=== PATIENT | female | born 1940 | race Caucasian/White ===

== ENCOUNTER 2024-09-08 20:20 | Emergency (ER) | payer OTHER, SELFPAY ==
[2024-09-08 20:46] VITALS: BP 143/75
--- NOTE | 2024-09-08 22:28 | ED.GENMED ---
History of Present Illness
General
Chief Complaint: Fall
Source: patient and spouse
Exam Limitations: none
Time Seen by Provider: 09/08/24 22:17
Nursing documentation reviewed up to this point in time: agreed with
History of Present Illness
History of Present Illness:
83-year-old female past medical history of COPD previous lung cancer presenting to the emergency department today with concerns of a trip and fall hitting her head prior to arrival did not lose consciousness otherwise feels well at this point. Has
a small cut to her left lower leg.
Review of Systems
Review of Systems
Allergies reviewed?: Yes
All Other Systems: ROS reviewed and negative except as documented in HPI and ROS
Phy Exam
Physical Exam
Physical Exam:
GENERAL: Alert , in no apparent distress
EYE: pupils equal and reactive
NECK: Supple, no significant adenopathy.
ENT: o/p clr, mmm.
CARDIAC: Regular rate and rhythm .
LUNGS: Clear breath sounds bilaterally, no acute respiratory distress, no wheezes/rales/rhonchi
ABDOMEN: Soft, without focal tenderness, no r/g, no cvat
NEUROLOGICAL: Alert and oriented, no focal neuro deficits
SKIN: Skin tear to the left lateral lower leg roughly 3 cm in total length no foreign body seen. Warm and dry, skin intact.
MUSCULOSKELETAL: No edema, well perfused.
PSYCH: Normal and appropriate interaction.
Course
Orders/Labs/Results
Orders:
Orders
09/08/24 20:50
CT Cervical Spine W/o Iv Contr Urgent
Comment:
Reason For Exam: fall w/ headstrike
CT Head W/o Iv Contrast Urgent
Comment:
Reason For Exam: fall w/ headstrike
Vital Signs
Initial and Last Documented VS:
Initial Vital Signs
Temp Pulse Resp BP Pulse Ox
98.2 F 78 16 143/75 96
09/08/24 20:46 09/08/24 20:46 09/08/24 20:46 09/08/24 20:46 09/08/24 20:46
Last Documented Vital Signs
Temp Pulse Resp BP Pulse Ox
98.2 F 74 27 139/69 99
09/08/24 20:46 09/08/24 22:38 09/08/24 22:38 09/08/24 22:38 09/08/24 22:38
Procedures
Laceration Closure
Left Lower Lateral Leg:
Status of Wound: clean
Size of Wound in cm: 3
Description of Wound Edges: sharp
Preparation: cleaned with saline
Revision/Debridement: routine- no revision
Wound exploration: explored to base- no FB
Type of Closure: Dermabond-skin glue and other (Steri-Strips and Dermabond)
MDM/Problems Addressed
MDM/Problems Addressed:
83-year-old female presenting to the emergency department after trip and fall prior to arrival. Sustained a laceration to her left lower leg and also hit her head. Did not lose consciousness not on blood thinners. CT scan of the head and neck
without emergent findings. Patient appears stable for discharge return precautions given.
*Critical Care Note
Total Time (30-74mins, 75-104mins- exclusive of procedures): Not Applicable
ED Attending Note
-
Portions of this chart may have been created with voice recognition software.� Occasional wrong word or��sound alike� substitutions may have occurred due to the inherent limitations of voice recognition software.
Discharge Plan
Departure
Patient Disposition: Home (Routine Discharge)
Date of Disposition: 09/08/24
Time of Disposition: 22:28
Patient with high blood pressure during this ER visit?: No
Condition: Good
Covid-19: Not Applicable
Discharge Problem:
Fall, Hematoma of left parietal scalp, Noninfected skin tear of left leg
Instructions: Preventing falls in adults
Referrals:
Danny Granados MD [Family Provider] -
Activity Restrictions/Additional Instructions:
You came to the emergency department today with concerns after a fall. Here you had a reassuring head CT and neck CT. Please keep the laceration clean and covered. Return for any worsening, new or concerning symptoms.
Interventions
Interventions:
*Risk Screen - Suicide Last Done: 09/08/24 20:48
*General Assessment Last Done: 09/08/24 22:19
*Neglect/Abuse Screening Last Done: 09/08/24 20:48
*ED- Fall Risk Assessment Last Done: 09/08/24 22:19
*ED COVID-19 Vaccine History Last Done: 09/08/24 20:48
*Nursing Disposition Last Done: 09/08/24 22:36
ED-Musculoskeletal Assessment Last Done: 09/08/24 22:19
ED- Neurological Assessment Last Done: 09/08/24 22:19
ED-Skin Assessment Last Done: 09/08/24 22:19
Discharge Date and Time
Discharge Date/Time: 09/08/24 22:39
Print Language: POLISH
[2024-09-08 22:38] VITALS: BP 139/69
== END 2024-09-08 22:39 | disposition home or self-care (01) ==
LOC: EMR 20:20
PROVIDERS: EMERGENCY PHYSICIAN Emergency Medicine; FAMILY PHYSICIAN Internal Medicine
DX: S81.812A Laceration without foreign body, left lower leg, initial encounter (principal); S00.03XA Contusion of scalp, initial encounter; W01.0XXA Fall on same level from slipping, tripping and stumbling without subsequent striking against object, initial encounter; J44.9 Chronic obstructive pulmonary disease, unspecified; Z85.118 Personal history of other malignant neoplasm of bronchus and lung
CPT/HCPCS: 12002; 99284; 70450; 72125

== ENCOUNTER 2024-12-28 09:12 | Emergency (ER) | payer MEDICARE, BC, SELFPAY ==
[2024-12-28] VITALS (13 sets, daily range): BP systolic 151–188; BP diastolic 80–97; BMI 20.4
--- NOTE | 2024-12-28 09:32 | ED.GENMED ---
History of Present Illness
<Jennifer Chandler DO, Resident - Last Filed: 12/28/24 15:58>
General
Chief Complaint: Fall
Time Seen by Provider: 12/28/24 09:13
History of Present Illness
History of Present Illness:
Patient is an 84-year-old female past medical history COPD, lung cancer s/p surgery presenting with a mechanical fall. Patient states she was at home using her walker trying to go to the bathroom, turned to turn on the light, while her walker was
unlocked and fell backwards on the floor. Patient states the walker then fell on top of her. Patient denies hitting her head patient denies loss of consciousness. Patient states that she has pain 9 out of 10 on her right ribs right shoulder right
neck. Patient states that it hurts to take deep breaths. Patient is tender to palpation on the right side. Patient has abrasions on right arm and chest. Patient states that she is having neck pain and that she is afraid to lift her head to use a
pillow.
Review of Systems
<Jennifer Chandler DO, Resident - Last Filed: 12/28/24 15:58>
Review of Systems
Allergies reviewed?: Yes
All Other Systems: ROS reviewed and negative except as documented in HPI and ROS
Constitutional: Reports no symptoms
EENT: Reports no symptoms
Respiratory: Reports trouble breathing and other (Pain on deep inspiration on right side.)
Cardiac: Reports no symptoms
ABD/GI: Reports no symptoms
: Reports no symptoms
Musculoskeletal: Reports no symptoms
Skin: Reports no symptoms
Neurological: Reports no symptoms
Endocrine: Reports no symptoms
Hematologic/Lymphatic: Reports no symptoms
Psychiatric: Reports no symptoms
Phy Exam
<Jennifer Chandler DO, Resident - Last Filed: 12/28/24 15:58>
General Physical Exam
General Presentation: moderate distress
General age: appears stated age
General Skin: warm and dry
General Habitus: elderly
Cardiovascular Exam
Cardiovascular Exam: regular rate/rhythm
Heart Sounds: normal
Pulmonary Exam
Pulmonary Exam: decreased breath sounds (On the right)
Breath Sounds: Crackles: generalized
Gastrointestinal Exam
Gastrointestinal Exam: tender (Upper right quadrant)
Neurological Exam
Neurological Exam: alert and oriented x3
Musculoskeletal Exam
Musculoskeletal Exam: neck pain and other (Left lateral rib pain)
Skin Exam
Skin Exam: normal color, warm/dry and other (Abrasion noted on right ribs arm elbow)
Psychiatric Exam
Psychiatric Exam: normal mood/affect
Course
<Jennifer Chandler DO, Resident - Last Filed: 12/28/24 15:58>
Orders/Labs/Results
Orders:
Orders
12/28/24 09:46
CXR [CR Chest Portable - 1 View] Urgent
Comment:
Reason For Exam: trauma. evaluate for ptx
Reason Study Needs to be Portable: Unable to Transport
12/28/24 09:52
CT Cervical Spine W/o Iv Contr Urgent
Comment:
Reason For Exam: Fall/head neck right-sided trauma
CT Chest/abd/pel W Iv Cont Urgent
Reason For Exam: Fall/head neck and right sided trauma
CT Head W/o Iv Contrast Urgent
Comment:
Reason For Exam: Fall/head neck and right sided trauma
Cardiac Monitoring- Treatment ONCE
12/28/24 09:53
IV Insert/Care/Rem.- Treatment PRN
0.9% Sodium Chloride 500 ml [Nss] 500 ml IV BOLUS
HYDROmorphone [Dilaudid] 0.25 mg IV NOW STA
12/28/24 10:03
Basic Metabolic Panel Urgent
Complete Blood Count/With Diff Urgent
12/28/24 12:38
HYDROmorphone [Dilaudid] 0.5 mg IV NOW STA
12/28/24 13:25
COVID-19 Antigen Stat
Source: Nasal Swab
12/28/24 14:03
HYDROmorphone [Dilaudid] 0.5 mg .ROUTE .STK-MED ONE
12/28/24 14:04
HYDROmorphone [Dilaudid] 0.5 mg IV NOW STA
Abnormal Lab Results
12/28/24
10:03
MCHC 32.8 L g/dL
(33.0-37.0)
RDW 15.5 H %
(11.5-14.5)
Chloride 113 H mmol/L
(98-107)
BUN 24 H mg/dl
(7-17)
12/28/24 10:03
12/28/24 10:03
Vital Signs
Initial and Last Documented VS:
Initial Vital Signs
Pulse Ox
95
12/28/24 09:17
Last Documented Vital Signs
Temp Pulse Resp BP Pulse Ox
97.6 F 72 13 156/82 96
12/28/24 15:00 12/28/24 15:15 12/28/24 15:15 12/28/24 15:00 12/28/24 15:00
<João Huntley MD - Last Filed: 12/28/24 13:24>
Orders/Labs/Results
Orders:
Orders
12/28/24 09:46
CXR [CR Chest Portable - 1 View] Urgent
Comment:
Reason For Exam: trauma. evaluate for ptx
Reason Study Needs to be Portable: Unable to Transport
12/28/24 09:[address] Cervical Spine W/o Iv Contr Urgent
Comment:
Reason For Exam: Fall/head neck right-sided trauma
CT Chest/abd/pel W Iv Cont Urgent
Reason For Exam: Fall/head neck and right sided trauma
CT Head W/o Iv Contrast Urgent
Comment:
Reason For Exam: Fall/head neck and right sided trauma
Cardiac Monitoring- Treatment ONCE
12/28/24 09:53
IV Insert/Care/Rem.- Treatment PRN
0.9% Sodium Chloride 500 ml [Nss] 500 ml IV BOLUS
HYDROmorphone [Dilaudid] 0.25 mg IV NOW STA
12/28/24 10:03
Basic Metabolic Panel Urgent
Complete Blood Count/With Diff Urgent
12/28/24 12:38
HYDROmorphone [Dilaudid] 0.5 mg IV NOW STA
12/28/24 13:25
COVID-19 Antigen Stat
Source: Nasal Swab
12/28/24 14:03
HYDROmorphone [Dilaudid] 0.5 mg .ROUTE .STK-MED ONE
12/28/24 14:04
HYDROmorphone [Dilaudid] 0.5 mg IV NOW STA
Abnormal Lab Results
12/28/24
10:03
MCHC 32.8 L g/dL
(33.0-37.0)
RDW 15.5 H %
(11.5-14.5)
Chloride 113 H mmol/L
(98-107)
BUN 24 H mg/dl
(7-17)
12/28/24 10:03
12/28/24 10:03
Vital Signs
Initial and Last Documented VS:
Initial Vital Signs
Pulse Ox
95
12/28/24 09:17
Last Documented Vital Signs
Temp Pulse Resp BP Pulse Ox
97.6 F 72 13 156/82 96
12/28/24 15:00 12/28/24 15:15 12/28/24 15:15 12/28/24 15:00 12/28/24 15:00
<Jennifer Chandler DO, Resident - Last Filed: 12/28/24 15:58>
MDM/Problems Addressed
MDM/Problems Addressed:
Will order CT head without contrast, CT neck, CT chest contrast CT abdomen pelvis. Will get portable x-ray to assess for pneumothorax. Will start patient on 0.25 Dilaudid IV for pain management.
Portable Chest XR showed No acute disease of the chest. Moderate elevation of the right hemidiaphragm. Mild displaced anterior right ninth rib fracture.
Head CT showed no acute intracranial abnormality. CT abdomen pelvis shows acute right 7th through 11th rib fractures. As well as a nonacute mild L3 compression fracture. Cervical spine shows no acute osseous injury. Multilevel degenerative disc
disease stable.
Patient will be transferred to [facility] for management of 5 rib fractures.
<Jennifer Chandler DO, Resident - Last Filed: 12/28/24 15:58>
*Pulse Oximetry
SaO2: 96
Oxygen Mode of Delivery: Room air
Patient hypoxic: no
*Critical Care Note
Total Time (30-74mins, 75-104mins- exclusive of procedures): Not Applicable
ED Attending Note
<Jennifer Chandler DO, Resident - Last Filed: 12/28/24 15:58>
-
Portions of this chart may have been created with voice recognition software.� Occasional wrong word or��sound alike� substitutions may have occurred due to the inherent limitations of voice recognition software.
<João Huntley MD - Last Filed: 12/28/24 13:24>
ED Attending Note
Patient seen and examined by attending physician: Yes
I performed a history and physical exam of patient and discussed management with resident, I reviewed resident's note and agree with documented findings and plan of care.: Yes
ED Attending Note:
Patient lost her balance and fell. Fell onto the right side also hitting her walker. Complaining of right lateral rib pain neck pain no head injury no abdominal pain no loss of consciousness no syncope. Pain with breathing no significant
shortness of breath.
TRAUMA EXAM:
VITAL SIGNS: Vital signs reviewed, cooperative
DISTRESS: No active disease
EYES: Pupils reactive, no orbital trauma
NOSE: No deformity or epistaxis
FACE AND SCALP: No scalp or facial trauma, external canals no blood
NECK: Supple mild right paracervical tenderness
BACK:Pelvis stable to compression
RESPIRATORY: No distress, some decreased breath sounds at the right base. Tenderness to light lateral chest wall. No crepitus. Abrasion and ecchymosis noted laterally
CARDIAC: No murmur, pulses equal and strong
ABDOMEN: Soft mild reproducible right upper quadrant tenderness. No rebound or guarding no mass or hernia
SKIN: Skin intact no bleeding, color normal
EXTREMITIES: Minimal tenderness to the right shoulder. Good range of motion. No clavicle tenderness
NEUROLOGICAL: Alert, oriented, no motor deficits
PSYCH: Mood affect normal
Impression fall/trauma. Highly suspicious for right rib fractures. Some decreased breath sounds on the right. No respiratory distress however. Chest x-ray shows no pneumothorax. She does have an elevated hemidiaphragm. Most suspicious this is
chronic but to consider diaphragmatic rupture. With neck pain right upper quadrant pain and chest findings pain patient will be CAT scan. She clinically is stable at this time.
Head CT negative cervical spine stable. 5 rib fractures. Small pleural effusion. Warrants pain management pulmonary toilet admission. Family request [facility].
Patient accepted at [facility]. Has remained medically stable.
Discharge Plan
Departure
Patient Disposition: Acute Care Hospital
Date of Disposition: 12/28/24
Time of Disposition: 13:24
Discharge Problem:
Fall/rib fracture x 5, Fracture, ribs, Fall
Prescriptions:
No Action
latanoprost 0.005 % Drops
1 drp OPHTHALMIC (EYE) DAILY
ciprofloxacin HCl 500 mg Tablet
500 mg PO BID
fluoxetine 20 mg Tablet
20 mg PO DAILY
gabapentin 100 mg Capsule
100 mg PO DAILY
ezetimibe 10 mg Tablet
10 mg PO DAILY
pitavastatin calcium 4 mg Tablet
4 mg PO DAILY
fluticasone furoate [Arnuity Ellipta] 100 mcg/actuation Blister With Device
1 inh INHALATION DAILY
Referrals:
Danny Granados MD [Family Provider, Internal Medicine]
Hospital Transfer
Other hospital: [facility]
I certify that the patient requires transfer: Yes
Discussed case with accepting physician: Nanda
Reason for transfer: higher level of care
Interventions
Interventions:
*Risk Screen - Suicide Last Done: 12/28/24 09:37
*General Assessment Last Done: 12/28/24 09:37
*Neglect/Abuse Screening Last Done: 12/28/24 09:37
*ED- Fall Risk Assessment Last Done: 12/28/24 09:37
*ED COVID-19 Vaccine History Last Done: 12/28/24 09:37
*Nursing Disposition Last Done: 12/28/24 15:14
ED-Musculoskeletal Assessment Last Done: 12/28/24 09:37
ED- Neurological Assessment Last Done: 12/28/24 09:37
ED-Skin Assessment Last Done: 12/28/24 09:37
Discharge Date and Time
Discharge Date/Time: 12/28/24 15:50
Print Language: TUVALUAN
[2024-12-28] MEDS: DILAUDID 0.25 MG IV (10:05)
[2024-12-28] MEDS: NSS 500 IV (10:05)
[2024-12-28 10:08] LABS: Hematocrit 38.7 % (37.0-47.0); Hemoglobin 12.7 g/dL (12.0-16.0); Mean Corp Hgb Conc. 32.8 g/dL (33.0-37.0); Mean Corpuscular Volume 90.0 fL (81.0-99.0); Nucleated Red Blood Cells % 0 %; Platelet Count 316 10^3/uL (130-400); Red Cell Dist. Width 15.5 % (11.5-14.5)
[2024-12-28 11:22] LABS: Blood Urea Nitrogen 24 mg/dl (7-17); Calcium 9.6 mg/dl (8.4-10.2); Carbon Dioxide 22 mmol/L (22-30); Chloride 113 mmol/L (98-107); Estimated Creatinine Clearance 45 ml/min; Glucose 93 mg/dl (70-99); Potassium 3.6 mmol/L (3.5-5.1); Sodium 142 mmol/L (135-145); eGFR > 60.00
[2024-12-28] MEDS: DILAUDID 0.5 MG IV ×2 (12:43→14:04)
--- NOTE | 2024-12-28 13:43 | EDRN ---
this RN called [facility] at [phone] to speak to the receiving trauma [employer] to give report on the pt and this RN spoke to the ER coordinator Marilyn and gave verbal report
[2024-12-28 13:50] LABS: COVID-19 Antigen Negative (Negative)
--- NOTE | 2024-12-28 15:10 | EDRN ---
[facility] has arrived to transport the pt to [facility], this RN called [facility] back at [phone] and notified them that the pt was on their way en route to them
== END 2024-12-28 15:50 | disposition short-term general hospital (02) ==
LOC: EMR 09:12
PROVIDERS: EMERGENCY PHYSICIAN Emergency Medicine; FAMILY PHYSICIAN Internal Medicine
DX: S22.41XA Multiple fractures of ribs, right side, initial encounter for closed fracture (principal); S40.811A Abrasion of right upper arm, initial encounter; S20.311A Abrasion of right front wall of thorax, initial encounter; J90 Pleural effusion, not elsewhere classified; W19.XXXA Unspecified fall, initial encounter; J44.9 Chronic obstructive pulmonary disease, unspecified; Z85.118 Personal history of other malignant neoplasm of bronchus and lung; Z98.890 Other specified postprocedural states
CPT/HCPCS: 96374; 96376; 96361; 99285; 70450; 71045; 71260; 72125; 74177; 80048; 85025; 87811; Q9967

== ENCOUNTER 2025-01-29 17:46 | Inpatient (IN) | payer MEDICARE, BC, SELFPAY ==
[2025-01-29 11:05] VITALS: BP 115/67
--- NOTE | 2025-01-29 12:09 | ED.GENMED ---
History of Present Illness
General
Chief Complaint: Urinary Symptoms
Source: patient
Time Seen by Provider: 01/29/25 11:57
History of Present Illness
History of Present Illness:
84-year-old female presents to the emergency room for evaluation of urinary tract infection symptoms. Patient has been having dysuria, frequency for the past couple weeks. She was started on Keflex by her primary care provider which did not help.
She saw Dr. Lin, urogynecology, who prescribed nitrofurantoin. She still was not feeling any better so Dr. Lin told her to come to the emergency room for further evaluation. Patient denies any fever but feels extremely weak and needs
assistance now up to get around her apartment. She denies any vomiting though she does have some nausea. She had recently broken some ribs and still has pain from that but no new pain. She is tolerating oral intake. She does get urinary tract
infections from time to time.
Phy Exam
Physical Exam
Physical Exam:
General: Awake, Alert, Oriented X3. No acute distress. Appears stated age, thin
Vitals: unremarkable
Head: Atraumatic
Eyes: Pupils equal, EOMI
Throat: Airway intact, no exudates, dry mucosa
Neck: Trachea midline
Lungs: Clear and equal b/l
Heart: Regular rate, no murmurs
Abd: Soft, Nontender, No pulsatile mass
Back: No CVA tenderness
Neuro: Nonfocal
Skin: Warm, dry, no rash
Extremities: pulses equal b/l, no edema
Course
Orders/Labs/Results
Orders:
Orders
01/29/25 12:08
Bladder Scan- Treatment ONCE
01/29/25 12:38
Basic Metabolic Panel Urgent
Complete Blood Count/With Diff Urgent
01/29/25 13:32
Urinalysis Reflex To Culture Urgent
Date Specimen was Collected: 01/29/25
Time Specimen was Collected: 12:11
Urine Microscopic Reflex Cult Urgent
Urine Culture Urgent
KARISSA Source: U
Specimen Description:
Date Specimen was Collected: 01/29/25
Time Specimen was Collected: 12:11
01/29/25 16:52
Meropenem 2000 mg IVPB NOW Meropenem [Merrem] 2,000 mg 0.9% Sodium Chloride 100 ml [Nss] 60 ml IV NOW
Abnormal Lab Results
01/29/25 01/29/25
12:38 13:32
WBC 14.0 H 10^3/uL
(4.8-10.8)
RBC 4.14 L 10^6/uL
(4.20-5.40)
MCHC 32.3 L g/dL
(33.0-37.0)
RDW 16.0 H %
(11.5-14.5)
Abs Immat Gran (auto) 0.1 H 10^3/uL
(0-0.05)
Absolute Neuts (auto) 10.8 H 10^3/uL
(1.4-6.5)
Absolute Monos (auto) 1.4 H 10^3/uL
(0.1-0.6)
Neutrophils % 76.6 H %
(42.2-75.2)
Lymphocytes % 12.4 L %
(20.5-51.1)
Monocytes % 9.9 H %
(1.7-9.3)
Chloride 108 H mmol/L
(98-107)
Carbon Dioxide 21 L mmol/L
(22-30)
BUN 22 H mg/dl
(7-17)
Glucose 107 H mg/dl
(70-99)
Ur Occult Blood Reflex 2+ A
(Negative)
Leukocyte Esterase Rfl 3+ A
(Negative)
Urine WBC (Reflex) 26-30 A /HPF
(0-5)
Urine Bacteria (Reflex) Moderate A
(Negative)
Urine Albumin (Reflex) 2+ A
(Neg - Trace)
01/29/25 12:38
01/29/25 12:38
Vital Signs
Initial and Last Documented VS:
Initial Vital Signs
Temp Pulse Resp BP Pulse Ox
99.2 F 72 18 115/67 98
01/29/25 11:05 01/29/25 11:05 01/29/25 11:05 01/29/25 11:05 01/29/25 11:05
Last Documented Vital Signs
Temp Pulse Resp BP Pulse Ox
99.2 F 72 16 186/97 98
01/29/25 11:05 01/29/25 15:27 01/29/25 15:27 01/29/25 15:27 01/29/25 15:27
MDM/Problems Addressed
Differential Diagnosis Includes:
UTI, electrode abnormality, dehydration
MDM/Problems Addressed:
Patient presents with UTI symptoms that have not been adequately treated by outpatient antibiotics. Urinalysis and urine culture sent by urogynecology showed a multidrug-resistant e coli. The only oral antibiotic to which this organism was
sensitive was nitrofurantoin. Patient with taken over the past couple days without improvement. Discussed with Dr. Lin. She forwarded urinalysis and urine culture results to me given the patient's weakness and failure of outpatient oral
antibiotics will hospitalize her for IV antibiotics.
*Pulse Oximetry
SaO2: 98
Oxygen Mode of Delivery: Room air
Patient hypoxic: no
*Critical Care Note
Total Time (30-74mins, 75-104mins- exclusive of procedures): Not Applicable
ED Attending Note
-
Portions of this chart may have been created with voice recognition software.� Occasional wrong word or��sound alike� substitutions may have occurred due to the inherent limitations of voice recognition software.
Discharge Plan
Departure
Patient Disposition: Admit
Date of Disposition: 01/29/25
Time of Disposition: 16:52
Presentation/result/management discussed w/ accepting MD/DO: Hospitalist
Condition: Fair
Discharge Problem:
Acute UTI
Prescriptions:
No Action
latanoprost 0.005 % Drops
1 drp OPHTHALMIC (EYE) DAILY
ciprofloxacin HCl 500 mg Tablet
500 mg PO BID
fluoxetine 20 mg Tablet
20 mg PO DAILY
gabapentin 100 mg Capsule
100 mg PO DAILY
ezetimibe 10 mg Tablet
10 mg PO DAILY
pitavastatin calcium 4 mg Tablet
4 mg PO DAILY
fluticasone furoate [Arnuity Ellipta] 100 mcg/actuation Blister With Device
1 inh INHALATION DAILY
Referrals:
Danny Granados MD [Family Provider, Internal Medicine]
Interventions
Interventions:
*Risk Screen - Suicide Last Done: 01/29/25 11:05
*General Assessment Last Done: 01/29/25 11:05
*Neglect/Abuse Screening Last Done: 01/29/25 12:00
*ED- Fall Risk Assessment Last Done: 01/29/25 11:05
*ED COVID-19 Vaccine History Last Done: 01/29/25 11:05
ED-Female Genitourinary Assessment Last Done: 01/29/25 12:00
Discharge Date and Time
Print Language: LITHUANIAN
[2025-01-29 12:46] LABS: Hematocrit 37.1 % (37.0-47.0); Hemoglobin 12.0 g/dL (12.0-16.0); Mean Corp Hgb Conc. 32.3 g/dL (33.0-37.0); Mean Corpuscular Volume 89.6 fL (81.0-99.0); Nucleated Red Blood Cells % 0 %; Platelet Count 270 10^3/uL (130-400); Red Cell Dist. Width 16.0 % (11.5-14.5)
[2025-01-29 13:26] LABS: Blood Urea Nitrogen 22 mg/dl (7-17); Calcium 9.2 mg/dl (8.4-10.2); Carbon Dioxide 21 mmol/L (22-30); Chloride 108 mmol/L (98-107); Glucose 107 mg/dl (70-99); Potassium 3.9 mmol/L (3.5-5.1); Sodium 135 mmol/L (135-145); eGFR > 60.00
[2025-01-29 14:08] LABS: Urine Character Slightly Cloudy (Clear)
[2025-01-29 14:39] LABS: Urine Red Blood Cell 0-2 /HPF (0-2); Urine Urothelial Cell 0-2 /LPF (FEW); Urine White Cell 26-30 /HPF (0-5)
[2025-01-29 15:27] VITALS: BP 186/97
[2025-01-29] MEDS: MERREM 500 MG IV ×2 (17:16→23:49)
[2025-01-29] MEDS: STERILE WATER FOR INJECTION 10 ML IV ×2 (17:16→23:49)
--- NOTE | 2025-01-29 17:25 | HPS.HSE ---
Addendum entered and electronically signed by Karina Garcia MD 01/29/25 18:02:
I have personally seen and examined the patient. I have discussed the case with the PA, whose note was reviewed and I agree with the note.
84F w/COPD, recent rib fractures, presenting with UTI, failed outpatient oral antibiotics.
On exam she does exhibit mild accessory muscle use to breathe which she contributes to her recent rib fractures. Otherwise exam is unremarkable, no abdominal tenderness, heart RRR, lungs CTAB with no wheezes, legs no edema.
WBC is 14, outpatient urine culture shows ESBL E. coli.
A/P
Check urine culture, blood culture, consult ID given [id number], start meropenem as below.
Rest as below
Original Note:
Family Physician
-
Family Physician: Danny Vilchis
Chief Complaint
-
Urinary Frequency
History of Present Illness
Patient is an 84 y/o female past medical history of COPD, Lung Cancer, and Hyperlipidemia who presents with urinary frequency. Patient reports ongoing urinary frequency despite treatment for urinary tract infection with antibiotics. Patient was
initially prescribed ciprofloxacin back in December. Earlier this month she was treated with cefuroxime. However her outpatient urine culture revealed a multi-drug resistant E. coli which was noted to be sensitive to nitrofurantoin. Despite taking
the nitrofurantoin for the past two days she continues with significant urinary frequency and was referred to the hospital by her urologist Dr. Lin. Patient denies dysuria. She denies fevers, sweats or chills.
Medical History
Past Medical History
Past Medical History: Reports Other
Additional Past Medical History:
Lung Cancer
COPD
Hyperlipidemia
Anxiety / Depression
Glaucoma
Past Surgical History: Reports Other
Additional Past Surgical History:
Partial Lung Resection
Multiple Right Hip Surgeries
Social History
Tobacco: Former Smoker (Quit 20 years ago)
Personal:
Living: With Family
Family History
Family History: Not pertinent
Allergies / Home Medications
Allergies reflects when Allergies were last updated in [employer].
Home Medications with original date entered in [employer]
Allergy/Medication List:
Allergies
Allergy/AdvReac Type Severity Reaction Status Date / Time
Sulfa (Sulfonamide Allergy Rash Verified 01/29/25 11:07
Antibiotics)
Home Medications
ezetimibe 10 mg tablet 10 mg PO DAILY 12/28/24
fluoxetine 20 mg tablet 20 mg PO DAILY 12/28/24
fluticasone furoate 100 mcg/actuation blister powder for inhalation (Arnuity Ellipta) 1 inh inhalation DAILY 12/28/24
latanoprost 0.005 % eye drops 1 drp ophthalmic (eye) DAILY 12/28/24
pitavastatin calcium 4 mg tablet 4 mg PO DAILY 12/28/24
estradiol 0.01% (0.1 mg/gram) vaginal cream 1 g vaginal .SEE BELOW 01/29/25
gabapentin 300 mg capsule 300 mg PO HS 01/29/25
ipratropium bromide 42 mcg (0.06 %) nasal spray 2 spray intranasal BID 01/29/25
Review of Systems
-
A 12 point ROS was completed and negative except as noted: Yes
Constitutional: Denies Fever
Respiratory: Denies Cough or Trouble Breathing
Cardiac: Denies Chest Pain or Palpitations
: Reports See HPI
Physical Exam
Vital Signs
Vital Signs
Temp Pulse Resp BP Pulse Ox
99.1 F 72 16 186/97 98
01/29/25 16:59 01/29/25 15:27 01/29/25 15:27 01/29/25 15:27 01/29/25 15:27
Physical Exam
General: Comfortable and Conversant
HEENT: Anicteric and Moist mucous membranes
Respiratory: Clear and Non Labored Respirations
Cardiac: S1/S2 and Regular Rhythm
GI: Soft and Non Tender
Genito-urinary: Clear Urine and Other (No suprapubic tenderness)
Musculoskeletal: No Clubbing and No Cyanosis
Skin: Warm and Dry
Neuro: Awake, Alert and Nonfocal/grossly intact
Psych: Calm
Laboratory Results
-
01/29/25 12:38
01/29/25 12:38
Data Reviewed
-
Lab Data: Labs Reviewed by me
Old Records: Reviewed
Impression/Plan
-
ESBL E. coli Urinary Tract Infection
-Consult Infectious Disease
-Continue meropenem
-Await urine culture
-Check blood cultures
COPD, no acute exacerbation
-Continue fluticasone
Hyperlipidemia
-Continue Zetia and Pitavastatin
Depression
-Continue fluoxetine
DVT proph: Lovenox
Code Status: Full Code
--- NOTE | 2025-01-29 20:00 | PTCARENOTE ---
Patient arrived to floor via stretcher accompanied by ED PCT. Patient ambulated to self x1 assist with RW, gait unsteady, assisted into bed. Nursing assessment completed and as documented. Oriented to room/facility, VSS, instructed use of call mandel
and within reach, care ongoing.
[2025-01-29 20:05] VITALS: BP 153/75; BMI 19.2
[2025-01-29] MEDS: NEURONTIN 300 MG PO (20:36)
[2025-01-29] MEDS: MELATONIN 5 MG PO (20:36)
[2025-01-29] MEDS: XALATAN OPHTHALMIC SOLUTION 1 DROP OPHTH (20:36)
[2025-01-29] MEDS: LOVENOX 40 MG SC (20:36)
[2025-01-29 23:00] VITALS: BP 109/59
[2025-01-30] MEDS: FLOVENT 44 MCG INHALER 2 PUFF INH ×2 (07:14→19:47)
[2025-01-30 07:23] VITALS: BP 116/61
[2025-01-30 07:34] LABS: Blood Urea Nitrogen 22 mg/dl (7-17); Calcium 9.4 mg/dl (8.4-10.2); Carbon Dioxide 22 mmol/L (22-30); Chloride 109 mmol/L (98-107); Estimated Creatinine Clearance 49 ml/min; Glucose 91 mg/dl (70-99); Potassium 3.7 mmol/L (3.5-5.1); Sodium 135 mmol/L (135-145); eGFR > 60.00
[2025-01-30 07:37] LABS: Hematocrit 34.5 % (37.0-47.0); Hemoglobin 11.2 g/dL (12.0-16.0); Mean Corp Hgb Conc. 32.5 g/dL (33.0-37.0); Mean Corpuscular Volume 89.4 fL (81.0-99.0); Platelet Count 265 10^3/uL (130-400); Red Cell Dist. Width 16.0 % (11.5-14.5)
--- NOTE | 2025-01-30 07:37 | W.PN.HOSP.TC ---
Today's Communication/Plan
-
Continue IV antibiotics, await culture results
Assessment / Plan
Assessment / Plan
84F with COPD, HLD, depression, presents with UTI, failed outpatient antibiotics.
ESBL E. coli Urinary Tract Infection
-Consult Infectious Disease
-Continue meropenem
-inpt urine culture pending
-blood cultures pending
COPD, no acute exacerbation
-Continue fluticasone
prn nebs
Hyperlipidemia
-Continue Zetia and Pitavastatin
Depression
-Continue fluoxetine
DVT proph: Lovenox
Code Status: Full Code
Anticipated Discharge: > 48 hours
Subjective/Interval History
-
Date of Service: January 30, 2025
Patient feels well, denies any issues overnight.
Objective Data
-
Labs:
Laboratory Results
01/30/25
06:51
WBC 9.3
Hgb 11.2 L
Hct 34.5 L
Plt Count 265
Sodium 135
Potassium 3.7
Chloride 109 H
Carbon Dioxide 22
BUN 22 H
Creatinine 0.7
Glucose 91
Calcium 9.4
Vital Signs:
Vital Signs
Temp Pulse Resp BP Pulse Ox
97.7 F 61 16 116/61 96
01/30/25 07:23 01/30/25 07:23 01/30/25 07:23 01/30/25 07:23 01/30/25 07:23
Review of Systems
-
All other systems: Reviewed and negative
Physical Exam
-
General: No Apparent Distress
HEENT: Moist Mucous Membranes, Anicteric and PERRLA
Respiratory: Clear to Auscultation; Negative Wheezes, Rales or Rhonchi
Cardiac: Regular Rhythm and S1/S2; Negative Murmur, Rub or Gallop
GI: Soft, Nontender, Nondistended and Normal Bowel Sounds
Musculoskeletal: No Edema
Skin: Warm and Dry; Negative Rash, Ulcers or Lesions
Neuro: Awake and AO x 3
Hematologic / Lymphatic: No Lymphadenopathy
Psych: Calm
Data Reviewed
-
Labs: Labs Reviewed by me and Discussed with Patient
[2025-01-30] MEDS: ZETIA 10 MG PO (08:42)
[2025-01-30] MEDS: PROZAC 20 MG PO (08:42)
[2025-01-30] MEDS: STERILE WATER FOR INJECTION 10 ML IV ×2 (08:43→15:56)
[2025-01-30] MEDS: LIPITOR 20 MG PO (08:43)
[2025-01-30] MEDS: MERREM 500 MG IV ×2 (08:44→15:55)
--- NOTE | 2025-01-30 10:21 | CON.ID ---
Consultation
-
Date/Time Consultation Requested: 01/29/20252005
Date/Time Consultation Performed: 01/30/2025 1015
Requesting Provider: Dr. Garcia
Performing Provider: Dr. Luna
Reason for Consultation: Complicated UTI
Chief Complaint / Past History
History of Present Illness
Claudia Sim is an 84-year-old female being evaluated in infectious disease consultation regarding recovery of ESBL E. coli from the urine. History is obtained from chart review, along with patient. The patient recently was evaluated by [facility] on 01/22/2025 for evaluation of complaints of recurrent urinary tract infections over the prior year. Workup included performing a urinalysis with culture. Culture came back positive for ESBL E. coli. Patient was
initially started on nitrofurantoin, but when she persisted with urinary urgency, she was sent to the hospital for further workup and evaluation.
The patient reports that over the past year she has had urinary frequency but it has been 'excessive' over the past several months. She notes that she has been very thirsty. She denies any history of fevers although notes she occasionally feels
chilly. No history of rigors. She denies any dysuria or any hematuria. She was recently started on vaginal estrogen cream, but the patient notes that she has not started it as of yet.
In the ER, she was found to have a low-grade leukocytosis. She has been started on meropenem.
Past History
Additional Past Medical History:
Lung Cancer
COPD
Hyperlipidemia
Anxiety / Depression
Glaucoma
Additional Past Surgical History:
Partial Lung Resection
Multiple Right Hip Surgeries
Allergy History:
Sulfa (Sulfonamide Antibiotics) Allergy (Verified 01/29/25 11:07)
Rash
Medications Reviewed: Yes
Current Antibiotics:
Meropenem 500 mg IV q.8 hours
Social History
Tobacco: Former Smoker
Alcohol: None
Drug: None
Personal:
Living: With Family
Family History
Family History: Not Pertinent
Review of Systems
Vital Signs
Temp Pulse Resp BP Pulse Ox
97.7 F 61 16 116/61 96
01/30/25 07:23 01/30/25 07:23 01/30/25 07:23 01/30/25 07:23 01/30/25 07:23
Physical Exam
Physical Exam
Constitutional: Comfortable, Chronically Ill, Non-toxic and Cachetic (mild)
Eyes: No Conjunctival Hemorrhage and Sclera Anicteric
Oral: No Thrush and No Ulcers
Cardiovascular: Regular Rate and S1/S2; Negative S3/S4
Pulmonary: Clear; Negative Wheezes or Rales
Gastrointestinal: Soft, Non Tender, Non Distended and Normal Bowel Sounds
Genito-Urinary: Negative Cristobal
Extremities: Negative Edema, Cyanosis or Erythema
Skin: Negative Rash or Jaundice
Neurological: Awake and Alert
Psychological: Calm
Lab / Diagnostic Study Results
01/30/25 06:51
01/30/25 06:51
Abs Immat Gran (auto) 0.1 10^3/uL (0-0.05) H 01/29/25 12:38
Absolute Neuts (auto) 10.8 10^3/uL (1.4-6.5) H 01/29/25 12:38
Absolute Lymphs (auto) 1.7 10^3/uL (1.2-3.4) 01/29/25 12:38
Absolute Monos (auto) 1.4 10^3/uL (0.1-0.6) H 01/29/25 12:38
Absolute Basos (auto) 0.0 10^3/uL (0-0.2) 01/29/25 12:38
Immature Gran % 0.4 % (0-0.5) 01/29/25 12:38
Neutrophils % 76.6 % (42.2-75.2) H 01/29/25 12:38
Lymphocytes % 12.4 % (20.5-51.1) L 01/29/25 12:38
Monocytes % 9.9 % (1.7-9.3) H 01/29/25 12:38
Eosinophils % 0.4 % (0-6) 01/29/25 12:38
Basophils % 0.3 % (0-2) 01/29/25 12:38
Ur Squamous Epith Cells 11-15 /LPF (Few) 01/29/25 13:32
Microbiology Results
Micro:
01/29/25 17:45 Blood Culture - Pending
Blood/Venous
01/29/25 17:45 Blood Culture - Pending
Blood/Venous
01/29/25 13:32 Urine Culture - Pending
Urine
01/25/2025 - Urinalysis (Performed @ [facility])
COLOR YELLOW
APPEARANCE CLEAR
SPECIFIC GRAVITY 1.019
PH 7.0
GLUCOSE NEGATIVE
BILIRUBIN NEGATIVE
KETONES NEGATIVE
OCCULT BLOOD NEGATIVE
PROTEIN 1+ A NEGATIVE
NITRITE POSITIVE A
LEUKOCYTE ESTERASE 3+ A
WBC 0-5 < OR = 5 (/HPF)
RBC 0-2 < OR = 2 (/HPF)
SQUAM EPITHELIAL CELLS 0-5
BACTERIA MODERATE
HYALINE CAST NONE SEEN
01/25/2025 - CULTURE, URINE, ROUTINE
Micro Number: [id number]
Test Status: Final
Specimen Source: Urine
Specimen Quality: Adequate
Result: Greater than 100,000 CFU/mL of Escherichia coli
E.coli

[place]
AMIKACIN S 4
AMOX/CLAVULANATE R >=32
AMP/SULBACTAM R >=32
CEFAZOLIN R >=32
CEFEPIME R >=32
CEFTAZIDIME R >=32
CEFTRIAXONE R >=64
CIPROFLOXACIN R >=4
GENTAMICIN R >=16
IMIPENEM S <=0.25
LEVOFLOXACIN R >=8
MEROPENEM S <=0.25
NITROFURANTOIN S <=16
PIP/TAZOBACTAM I 16
TRIMETHOPRIM/SULFA R >=320
Assessment / Plan
Leukocytosis; improved
Bacteriuria/pyuria; suspected complicated urinary tract infection
Recent recovery of ESBL E. coli from urine
Hx Lung Cancer
COPD
Hyperlipidemia
Anxiety / Depression
Glaucoma
Recommendations:
Continue with meropenem for the present.
Follow for improvement in urinary urgency.
Monitor white count and temperature.
Contact isolation.
--- NOTE | 2025-01-30 10:47 | CM ---
Addendum entered by Bisi Rankin 01/30/25 10:58:
cm consult completed dc planning
Original Note:
Patient seen at bedside
DX: UTI
consult ID given [id number]
PMH: COPD, Lung Cancer, and Hyperlipidemia who presents with urinary frequency
Patient lives in a 2 story home, 1st floor set up bed/bath
PLOF: independent with walker
DME: walker
CURRENT with [facility] Co[facility] in the past
PT to eval
PCP: Danny Will
Pharmacy: [facility]
PLAN: anticipate home with ELLI Dunbar, Await PT JOHN fishman to continue to follow
[2025-01-30 11:40] LABS: Glucose - Point of Care 87 mg/dl (70-99)
[2025-01-30 13:03] VITALS: PULSE 78; O2SAT 98
[2025-01-30 15:00] VITALS: BP 102/59
[2025-01-30 16:46] LABS: Glucose - Point of Care 165 mg/dl (70-99)
[2025-01-30] MEDS: LOVENOX 40 MG SC (17:17)
[2025-01-30] MEDS: MELATONIN 5 MG PO (22:16)
[2025-01-30] MEDS: XALATAN OPHTHALMIC SOLUTION 1 DROP OPHTH (22:17)
[2025-01-30] MEDS: NEURONTIN 300 MG PO (22:17)
[2025-01-30 22:52] VITALS: BP 129/70
[2025-01-31] MEDS: STERILE WATER FOR INJECTION 10 ML IV ×4 (00:37→23:55)
[2025-01-31] MEDS: MERREM 500 MG IV ×4 (00:37→23:55)
[2025-01-31 06:02] LABS: Hematocrit 34.2 % (37.0-47.0); Hemoglobin 11.0 g/dL (12.0-16.0); Mean Corp Hgb Conc. 32.2 g/dL (33.0-37.0); Mean Corpuscular Volume 89.8 fL (81.0-99.0); Nucleated Red Blood Cells % 0 %; Platelet Count 283 10^3/uL (130-400); Red Cell Dist. Width 16.0 % (11.5-14.5)
[2025-01-31 07:00] VITALS: BP 120/69
[2025-01-31] MEDS: ZETIA 10 MG PO (07:21)
[2025-01-31] MEDS: LIPITOR 20 MG PO (07:21)
[2025-01-31] MEDS: PROZAC 20 MG PO (07:21)
[2025-01-31] MEDS: FLOVENT 44 MCG INHALER 2 PUFF INH ×2 (07:27→19:46)
[2025-01-31 07:34] LABS: Blood Urea Nitrogen 27 mg/dl (7-17); Calcium 9.0 mg/dl (8.4-10.2); Carbon Dioxide 22 mmol/L (22-30); Chloride 112 mmol/L (98-107); Estimated Creatinine Clearance 43 ml/min; Glucose 83 mg/dl (70-99); Potassium 3.7 mmol/L (3.5-5.1); Sodium 138 mmol/L (135-145); eGFR > 60.00
--- NOTE | 2025-01-31 08:15 | W.PN.HOSP.TC ---
Today's Communication/Plan
-
Continue IV antibiotics, will need PICC on dc for OPAT
Assessment / Plan
Assessment / Plan
84F with COPD, HLD, depression, presents with UTI, failed outpatient antibiotics.
ESBL E. coli Urinary Tract Infection
-Consulted Infectious Disease
-Change from meropenem to ertapenem x12 more days, monitor BMP
-inpt urine culture normal anna
-blood cultures NGTD
PICC
COPD, no acute exacerbation
-Continue fluticasone
prn nebs
Hyperlipidemia
-Continue Zetia and Pitavastatin
Depression
-Continue fluoxetine
DVT proph: Lovenox
Code Status: Full Code
Anticipated Discharge: > 48 hours
Subjective/Interval History
-
Date of Service: January 31, 2025
Patient denies any acute issues overnight. Her aide is at bedside. She is concerned about her situation at home because even though they have help she takes care of her who is also on IV antibiotics at home
Objective Data
-
Labs:
Laboratory Results
01/31/25
05:32
WBC 8.2
Hgb 11.0 L
Hct 34.2 L
Plt Count 283
Sodium 138
Potassium 3.7
Chloride 112 H
Carbon Dioxide 22
BUN 27 H
Creatinine 0.8
Glucose 83
Calcium 9.0
Vital Signs:
Vital Signs
Temp Pulse Resp BP Pulse Ox
98.0 F 73 16 120/69 94
01/31/25 07:00 01/31/25 07:30 01/31/25 07:30 01/31/25 07:00 01/31/25 07:30
I&O
01/30/25 01/31/25 02/01/25
06:59 06:59 06:59
Intake Total 980 / 980
Balance 980 / 980
Review of Systems
-
All other systems: Reviewed and negative
Physical Exam
-
General: No Apparent Distress
HEENT: Moist Mucous Membranes, Anicteric and PERRLA
Respiratory: Clear to Auscultation; Negative Wheezes, Rales or Rhonchi
Cardiac: Regular Rhythm and S1/S2; Negative Murmur, Rub or Gallop
GI: Soft, Nontender, Nondistended and Normal Bowel Sounds
Musculoskeletal: No Edema
Skin: Warm and Dry; Negative Rash, Ulcers or Lesions
Neuro: Awake and AO x 3
Hematologic / Lymphatic: No Lymphadenopathy
Psych: Calm
Data Reviewed
-
Labs: Labs Reviewed by me and Discussed with Patient
--- NOTE | 2025-01-31 11:44 | W.PN.ID1 ---
Date of Service
Date of Service: January 31, 2025
Today's Communication
Continue antibiotics. Transition to ertapenem.
Assessment / Plan
Leukocytosis; improved
Bacteriuria/pyuria; suspected complicated urinary tract infection
Recent recovery of ESBL E. coli from urine
Hx Lung Cancer
COPD
Hyperlipidemia
Anxiety / Depression
Glaucoma
Recommendations:
Patient with clinical improvement (decreased urinary urgency and frequency).
Transition to once daily ertapenem. Would continue with an additional 12 days of therapy.
Will likely need PICC line. Can pursue home infusion versus outpatient infusion department administration.
Prescription placed on chart.
Monitor white count and temperature.
Contact isolation.
����������������������������������������������������������
Chief Complaint
-: UTI
Subjective / Review of Systems
Patient seen and examined. Reports decreased frequency and urgency of urination.
Vital Signs / Physical Exam
Vital Signs
Vital Signs
Temp Pulse Resp BP Pulse Ox
98.0 F 73 16 120/69 94
01/31/25 07:00 01/31/25 07:30 01/31/25 07:30 01/31/25 07:00 01/31/25 07:30
Physical Exam
Constitutional: No Acute Distress, Comfortable, Chronically Ill and Non-toxic
Pulmonary: Non Labored
Gastrointestinal: Non Distended
Extremities: Edema; Negative Cyanosis or Erythema
Neurological: Awake and Alert
Psychological: Calm
Objective Data
Lab Data
Lab Results
01/31/25 05:32
01/31/25 05:32
Estimated Creat Clear 43 ml/min 01/31/25 05:32
Most recent labs reviewed.
Micro Results:
01/29/25 17:45 Blood Culture - Preliminary
Blood/Venous No Growth in 24 hours- Final report to follow
01/29/25 17:45 Blood Culture - Preliminary
Blood/Venous No Growth in 24 hours- Final report to follow
01/29/25 13:32 Urine Culture - Final
Urine
01/25/2025 - Urinalysis (Performed @ [facility])
COLOR YELLOW
APPEARANCE CLEAR
SPECIFIC GRAVITY 1.019
PH 7.0
GLUCOSE NEGATIVE
BILIRUBIN NEGATIVE
KETONES NEGATIVE
OCCULT BLOOD NEGATIVE
PROTEIN 1+ A NEGATIVE
NITRITE POSITIVE A
LEUKOCYTE ESTERASE 3+ A
WBC 0-5 < OR = 5 (/HPF)
RBC 0-2 < OR = 2 (/HPF)
SQUAM EPITHELIAL CELLS 0-5
BACTERIA MODERATE
HYALINE CAST NONE SEEN
01/25/2025 - CULTURE, URINE, ROUTINE
Micro Number: [id number]
Test Status: Final
Specimen Source: Urine
Specimen Quality: Adequate
Result: Greater than 100,000 CFU/mL of Escherichia coli
E.coli

[place]
AMIKACIN S 4
AMOX/CLAVULANATE R >=32
AMP/SULBACTAM R >=32
CEFAZOLIN R >=32
CEFEPIME R >=32
CEFTAZIDIME R >=32
CEFTRIAXONE R >=64
CIPROFLOXACIN R >=4
GENTAMICIN R >=16
IMIPENEM S <=0.25
LEVOFLOXACIN R >=8
MEROPENEM S <=0.25
NITROFURANTOIN S <=16
PIP/TAZOBACTAM I 16
TRIMETHOPRIM/SULFA R >=320
[2025-01-31 15:00] VITALS: BP 140/71
[2025-01-31] MEDS: LOVENOX 40 MG SC (16:35)
[2025-01-31] MEDS: TYLENOL 650 MG PO (16:37)
[2025-01-31] MEDS: MELATONIN 5 MG PO (20:29)
[2025-01-31] MEDS: NEURONTIN 300 MG PO (20:29)
[2025-01-31] MEDS: XALATAN OPHTHALMIC SOLUTION 1 DROP OPHTH (20:29)
[2025-01-31 23:00] VITALS: BP 101/65
[2025-02-01 07:00] VITALS: BP 147/79
[2025-02-01] MEDS: FLOVENT 44 MCG INHALER 2 PUFF INH ×2 (08:10→20:25)
[2025-02-01] MEDS: STERILE WATER FOR INJECTION 10 ML IV ×2 (08:21→16:06)
[2025-02-01] MEDS: MERREM 500 MG IV ×2 (08:22→16:06)
[2025-02-01] MEDS: LIPITOR 20 MG PO (08:23)
[2025-02-01] MEDS: PROZAC 20 MG PO (08:23)
[2025-02-01] MEDS: ZETIA 10 MG PO (08:23)
--- NOTE | 2025-02-01 08:23 | W.PN.HOSP.TC ---
Today's Communication/Plan
-
IV abx
dc planning
PICC
Assessment / Plan
Assessment / Plan
84F with COPD, HLD, depression, presents with UTI, failed outpatient antibiotics.
ESBL E. coli Urinary Tract Infection
-Consulted Infectious Disease
-Change from meropenem to ertapenem x12 more days, monitor BMP
Patient will be set up for home versus ambulatory infusion
-inpt urine culture normal anna
-blood cultures NGTD
PICC placement
COPD, no acute exacerbation
-Continue fluticasone
prn nebs
Hyperlipidemia
-Continue Zetia and Pitavastatin
Depression
-Continue fluoxetine
DVT proph: Lovenox
Code Status: Full Code
Anticipated Discharge: Within 24 hours
Subjective/Interval History
-
Date of Service: February 01, 2025
Patient feeling well denies any issues overnight
Objective Data
-
Labs:
Laboratory Results
02/01/25
06:50
WBC Pending
Hgb Pending
Hct Pending
Plt Count Pending
Sodium Pending
Potassium Pending
Chloride Pending
Carbon Dioxide Pending
BUN Pending
Creatinine Pending
Glucose Pending
Calcium Pending
Vital Signs:
Vital Signs
Temp Pulse Resp BP Pulse Ox
97.8 F 70 18 101/65 97
01/31/25 23:00 02/01/25 08:13 02/01/25 08:13 01/31/25 23:00 02/01/25 08:13
I&O
01/31/25 02/01/25 02/02/25
06:59 06:59 06:59
Intake Total 980 / 980 740 / 740
Balance 980 / 980 740 / 740
Review of Systems
-
All other systems: Reviewed and negative
Physical Exam
-
General: No Apparent Distress
HEENT: Moist Mucous Membranes, Anicteric and PERRLA
Respiratory: Clear to Auscultation; Negative Wheezes, Rales or Rhonchi
Cardiac: Regular Rhythm and S1/S2; Negative Murmur, Rub or Gallop
GI: Soft, Nontender, Nondistended and Normal Bowel Sounds
Musculoskeletal: No Edema
Skin: Warm and Dry; Negative Rash, Ulcers or Lesions
Neuro: Awake and AO x 3
Hematologic / Lymphatic: No Lymphadenopathy
Psych: Calm
Data Reviewed
-
Labs: Labs Reviewed by me and Discussed with Patient
[2025-02-01 08:47] LABS: Hematocrit 34.5 % (37.0-47.0); Hemoglobin 11.2 g/dL (12.0-16.0); Mean Corp Hgb Conc. 32.5 g/dL (33.0-37.0); Mean Corpuscular Volume 90.8 fL (81.0-99.0); Nucleated Red Blood Cells % 0 %; Platelet Count 298 10^3/uL (130-400); Red Cell Dist. Width 16.0 % (11.5-14.5)
[2025-02-01 09:12] LABS: Blood Urea Nitrogen 28 mg/dl (7-17); Calcium 9.2 mg/dl (8.4-10.2); Carbon Dioxide 22 mmol/L (22-30); Chloride 113 mmol/L (98-107); Estimated Creatinine Clearance 43 ml/min; Glucose 77 mg/dl (70-99); Potassium 3.6 mmol/L (3.5-5.1); Sodium 142 mmol/L (135-145); eGFR > 60.00
[2025-02-01 12:19] VITALS: BP 147/61; PULSE 63; O2SAT 98
[2025-02-01] MEDS: PROZAC 40 MG PO (13:05)
[2025-02-01 15:00] VITALS: BP 135/65
--- NOTE | 2025-02-01 16:02 | CM ---
Spoke with patient she said she has / care givers for herself and her .
As per MD patient needs home IV antibiotics.
Pt requested same agency that her has . She picked [facility] and [facility] . Update sent to [facility].
LM with [facility] message for need of IV antibiotics.
PLAN Home with [facility] and [facility] fax [phone]
[2025-02-01] MEDS: LOVENOX 40 MG SC (16:08)
[2025-02-01] MEDS: MELATONIN 5 MG PO (21:33)
[2025-02-01] MEDS: XALATAN OPHTHALMIC SOLUTION 1 DROP OPHTH (21:33)
[2025-02-01] MEDS: NEURONTIN 300 MG PO (21:33)
[2025-02-01 23:00] VITALS: BP 144/61
[2025-02-02] MEDS: STERILE WATER FOR INJECTION 10 ML IV (00:50)
[2025-02-02] MEDS: MERREM 500 MG IV (00:50)
[2025-02-02 06:36] LABS: Hematocrit 35.1 % (37.0-47.0); Hemoglobin 11.2 g/dL (12.0-16.0); Mean Corp Hgb Conc. 31.9 g/dL (33.0-37.0); Mean Corpuscular Volume 90.0 fL (81.0-99.0); Nucleated Red Blood Cells % 0 %; Platelet Count 306 10^3/uL (130-400); Red Cell Dist. Width 15.9 % (11.5-14.5)
[2025-02-02 06:58] LABS: Blood Urea Nitrogen 26 mg/dl (7-17); Calcium 9.0 mg/dl (8.4-10.2); Carbon Dioxide 20 mmol/L (22-30); Chloride 114 mmol/L (98-107); Estimated Creatinine Clearance 49 ml/min; Glucose 82 mg/dl (70-99); Potassium 3.5 mmol/L (3.5-5.1); Sodium 141 mmol/L (135-145); eGFR > 60.00
[2025-02-02 07:00] VITALS: BP 116/53
[2025-02-02] MEDS: FLOVENT 44 MCG INHALER 2 PUFF INH ×2 (07:56→20:25)
--- NOTE | 2025-02-02 08:04 | W.PN.HOSP.TC ---
Today's Communication/Plan
-
IV abx
Pending home IV abx arrangement and PICC placement
Assessment / Plan
Assessment / Plan
84F with COPD, HLD, depression, presents with UTI, failed outpatient antibiotics.
ESBL E. coli Urinary Tract Infection
-Consulted Infectious Disease
-Change from meropenem to ertapenem x12 more days, monitor BMP
Patient will be set up for home IV abx infusion. discussed plan with ID
-inpt urine culture normal anna
-blood cultures NGTD
PICC placement�ordered
COPD, no acute exacerbation
-Continue fluticasone
prn nebs
Hyperlipidemia
-Continue Zetia and Pitavastatin
Depression
-Continue fluoxetine
DVT proph: Lovenox
Code Status: Full Code
Dispo:
Medically ready for discharge pending PICC and home IV antibiotic infusion set up. Patient will not have adequate help at home antibiotics until Monday.
Anticipated Discharge: 24 - 48 hours
Subjective/Interval History
-
Date of Service: February 02, 2025
Patient denies any acute issues overnight
Objective Data
-
Labs:
Laboratory Results
02/02/25
05:41
WBC 8.0
Hgb 11.2 L
Hct 35.1 L
Plt Count 306
Sodium 141
Potassium 3.5
Chloride 114 H
Carbon Dioxide 20 L
BUN 26 H
Creatinine 0.7
Glucose 82
Calcium 9.0
Vital Signs:
Vital Signs
Temp Pulse Resp BP Pulse Ox
97.9 F 64 14 116/53 95
02/02/25 07:00 02/02/25 07:58 02/02/25 07:58 02/02/25 07:00 02/02/25 07:58
I&O
02/01/25 02/02/25 02/03/25
06:59 06:59 06:59
Intake Total 740 / 740 1130 / 1130
Balance 740 / 740 1130 / 1130
Review of Systems
-
All other systems: Reviewed and negative
Physical Exam
-
General: No Apparent Distress
HEENT: Moist Mucous Membranes, Anicteric and PERRLA
Respiratory: Clear to Auscultation; Negative Wheezes, Rales or Rhonchi
Cardiac: Regular Rhythm and S1/S2; Negative Murmur, Rub or Gallop
GI: Soft, Nontender, Nondistended and Normal Bowel Sounds
Musculoskeletal: No Edema
Skin: Warm and Dry; Negative Rash, Ulcers or Lesions
Neuro: Awake and AO x 3
Hematologic / Lymphatic: No Lymphadenopathy
Psych: Calm
Data Reviewed
-
Labs: Labs Reviewed by me and Discussed with Patient
[2025-02-02] MEDS: MERREM IV (08:35)
[2025-02-02] MEDS: PROZAC 60 MG PO (08:44)
[2025-02-02] MEDS: LIPITOR 20 MG PO (08:44)
[2025-02-02] MEDS: ZETIA 10 MG PO (08:44)
[2025-02-02] MEDS: INVANZ 60 MG IV (08:44)
[2025-02-02] MEDS: STERILE WATER FOR INJECTION IV (09:29)
--- NOTE | 2025-02-02 13:58 | CM ---
Patient she said she has care givers for herself and her .
As per MD patient needs home IV antibiotics.
Pt requested [facility] and [facility]
Update sent to [facility] via care port.
LM with [facility] message for need of IV antibiotics.
Faxed IV antibiotics script to [facility].Follow up min am.
PICC line not placed yet . CM will need to fax PICC line information to [facility] after placed.
PLAN Home with [facility] and [place] fax [phone]
[2025-02-02 15:00] VITALS: BP 144/75
[2025-02-02 16:17] VITALS: BP 142/66; PULSE 67; O2SAT 97
[2025-02-02] MEDS: LOVENOX 40 MG SC (18:05)
[2025-02-02] MEDS: MELATONIN 5 MG PO (22:10)
[2025-02-02] MEDS: BENADRYL 25 MG PO (22:10)
[2025-02-02] MEDS: NEURONTIN 300 MG PO (22:10)
[2025-02-02] MEDS: XALATAN OPHTHALMIC SOLUTION 1 DROP OPHTH (22:11)
[2025-02-02 23:11] VITALS: BP 178/87
[2025-02-03 01:32] VITALS: BP 146/83
[2025-02-03 05:25] LABS: Hematocrit 35.2 % (37.0-47.0); Hemoglobin 11.3 g/dL (12.0-16.0); Mean Corp Hgb Conc. 32.1 g/dL (33.0-37.0); Mean Corpuscular Volume 89.6 fL (81.0-99.0); Platelet Count 300 10^3/uL (130-400); Red Cell Dist. Width 15.6 % (11.5-14.5)
[2025-02-03 05:54] LABS: Blood Urea Nitrogen 24 mg/dl (7-17); Calcium 9.4 mg/dl (8.4-10.2); Carbon Dioxide 23 mmol/L (22-30); Chloride 113 mmol/L (98-107); Estimated Creatinine Clearance 49 ml/min; Glucose 85 mg/dl (70-99); Potassium 3.6 mmol/L (3.5-5.1); Sodium 140 mmol/L (135-145); eGFR > 60.00
[2025-02-03 08:06] VITALS: BP 147/73
[2025-02-03] MEDS: FLOVENT 44 MCG INHALER 2 PUFF INH ×2 (08:24→19:53)
[2025-02-03] MEDS: PROZAC 60 MG PO (08:25)
[2025-02-03] MEDS: ZETIA 10 MG PO (08:25)
[2025-02-03] MEDS: LIPITOR 20 MG PO (08:25)
[2025-02-03] MEDS: INVANZ 60 MG IV (09:00)
--- NOTE | 2025-02-03 09:03 | W.PN.HOSP.TC ---
Today's Communication/Plan
-
Plan for discharge home with IV antibiotics tomorrow
Assessment / Plan
Assessment / Plan
84F with COPD, HLD, depression, presents with UTI, failed outpatient antibiotics.
ESBL E. coli Urinary Tract Infection
-Appreciate ID input, changed from meropenem to ertapenem x11 more days, monitor BMP
-Inpt urine culture normal anna, blood cultures NGTD
-ID recommends home IV antibiotics, PICC placed, case management on board
-Plan for discharge home with IV antibiotics tomorrow
COPD, no acute exacerbation
-Continue fluticasone, prn nebs
Hyperlipidemia
-Continue Zetia and Pitavastatin
Depression
-Continue fluoxetine
DVT proph: Lovenox
Code Status: Full Code
Total time spent to see the patient on the floor, examine the patient, review data and lab results, discuss treatment plan with patient, nursing staff around 35 minutes.
Physical Exam
General: No acute distress
HEENT: Normocephalic, Atraumatic, EOMI, MMM
Respiratory: Clear to Auscultation bilaterally
Cardiac: Normal S1/S2, Regular Rate and Rhythm
GI: Soft, Nontender, Nondistended, Normal Bowel Sounds
Extremities: No Clubbing, Cyanosis, or Edema
Neuro: Nonfocal/Grossly Intact
Psych: Calm, Cooperative
Anticipated Discharge: Within 24 hours
Subjective/Interval History
-
Date of Service: February 03, 2025
Patient has chronic shortness of breath. She denies dysuria, denies chest pain. No fever, no vomiting.
Objective Data
-
Labs:
Laboratory Results
02/03/25
05:16
WBC 8.6
Hgb 11.3 L
Hct 35.2 L
Plt Count 300
Sodium 140
Potassium 3.6
Chloride 113 H
Carbon Dioxide 23
BUN 24 H
Creatinine 0.7
Glucose 85
Calcium 9.4
Vital Signs:
Vital Signs
Temp Pulse Resp BP Pulse Ox
97.7 F 72 16 147/73 98
02/03/25 08:06 02/03/25 08:27 02/03/25 08:27 02/03/25 08:06 02/03/25 08:27
I&O
02/02/25 02/03/25 02/04/25
06:59 06:59 06:59
Intake Total 1130 / 1130 890 / 890
Balance 1130 / 1130 890 / 890
--- NOTE | 2025-02-03 14:16 | W.PN.ID1 ---
Date of Service
Date of Service: February 03, 2025
Today's Communication
Continue antibiotics
Assessment / Plan
Leukocytosis; improved
Bacteriuria/pyuria; suspected complicated urinary tract infection
Recent recovery of ESBL E. coli from urine
Hx Lung Cancer
COPD
Hyperlipidemia
Anxiety / Depression
Glaucoma
Recommendations:
Overall clinical improvement noted. (decreased urinary urgency and frequency).
Continue ertapenem. Would continue with an additional 9 days of therapy.
Prescription previously placed on chart.
Monitor white count and temperature.
Contact isolation.
����������������������������������������������������������
Chief Complaint
-: UTI
Subjective / Review of Systems
Review of Systems: No Fever, No Chills, No Abdominal Pain and No Dysuria
Vital Signs / Physical Exam
Vital Signs
Vital Signs
Temp Pulse Resp BP Pulse Ox
97.7 F 72 16 147/73 98
02/03/25 08:06 02/03/25 08:27 02/03/25 08:27 02/03/25 08:06 02/03/25 08:27
Physical Exam
Constitutional: No Acute Distress, Comfortable, Chronically Ill and Non-toxic
Eyes: Sclera Anicteric
Cardiovascular: S1/S2; Negative S3/S4
Pulmonary: Non Labored
Gastrointestinal: Soft, Non Tender and Non Distended
Neurological: Awake and Alert
Psychological: Calm
Lines: PICC
Objective Data
Lab Data
Lab Results
02/03/25 05:16
02/03/25 05:16
Estimated Creat Clear 49 ml/min 02/03/25 05:16
Most recent labs reviewed.
Micro Results:
01/29/25 17:45 Blood Culture - Preliminary
Blood/Venous No Growth in 4 days- Final report to follow
01/29/25 17:45 Blood Culture - Preliminary
Blood/Venous No Growth in 4 days- Final report to follow
01/29/25 13:32 Urine Culture - Final
Urine
01/25/2025 - Urinalysis (Performed @ [facility])
COLOR YELLOW
APPEARANCE CLEAR
SPECIFIC GRAVITY 1.019
PH 7.0
GLUCOSE NEGATIVE
BILIRUBIN NEGATIVE
KETONES NEGATIVE
OCCULT BLOOD NEGATIVE
PROTEIN 1+ A NEGATIVE
NITRITE POSITIVE A
LEUKOCYTE ESTERASE 3+ A
WBC 0-5 < OR = 5 (/HPF)
RBC 0-2 < OR = 2 (/HPF)
SQUAM EPITHELIAL CELLS 0-5
BACTERIA MODERATE
HYALINE CAST NONE SEEN
01/25/2025 - CULTURE, URINE, ROUTINE
Micro Number: [id number]
Test Status: Final
Specimen Source: Urine
Specimen Quality: Adequate
Result: Greater than 100,000 CFU/mL of Escherichia coli
E.coli

[place]
AMIKACIN S 4
AMOX/CLAVULANATE R >=32
AMP/SULBACTAM R >=32
CEFAZOLIN R >=32
CEFEPIME R >=32
CEFTAZIDIME R >=32
CEFTRIAXONE R >=64
CIPROFLOXACIN R >=4
GENTAMICIN R >=16
IMIPENEM S <=0.25
LEVOFLOXACIN R >=8
MEROPENEM S <=0.25
NITROFURANTOIN S <=16
PIP/TAZOBACTAM I 16
TRIMETHOPRIM/SULFA R >=320
[2025-02-03 15:52] VITALS: BP 103/71
--- NOTE | 2025-02-03 15:54 | CM ---
CM contacted [facility]; midline report faxed to [facility]. Pt will have her abx prior to discharge tomorrow and infusion will start 02/05/2025.
[2025-02-03] MEDS: LOVENOX SC (17:28)
[2025-02-03] MEDS: MELATONIN 5 MG PO (22:28)
[2025-02-03] MEDS: NEURONTIN 300 MG PO (22:29)
[2025-02-03] MEDS: XALATAN OPHTHALMIC SOLUTION 1 DROP OPHTH (22:29)
[2025-02-03] MEDS: BENADRYL 25 MG PO (22:29)
[2025-02-03 23:40] VITALS: BP 166/86
[2025-02-04 00:07] VITALS: BP 136/82
[2025-02-04 07:20] VITALS: BP 124/82
[2025-02-04] MEDS: FLOVENT 44 MCG INHALER 2 PUFF INH (07:49)
[2025-02-04] MEDS: PROZAC 60 MG PO (08:40)
[2025-02-04] MEDS: LIPITOR 20 MG PO (08:40)
[2025-02-04] MEDS: ZETIA 10 MG PO (08:40)
--- NOTE | 2025-02-04 08:55 | W.PN.HOSP.TC ---
Today's Communication/Plan
-
Discharge home on IV ertapenem today
Assessment / Plan
Assessment / Plan
84F with COPD, HLD, depression, presents with UTI, failed outpatient antibiotics.
ESBL E. coli Urinary Tract Infection
-Appreciate ID input, changed from meropenem to ertapenem, needs 8 more days, monitor BMP
-Inpt urine culture normal anna, blood cultures NGTD
-ID recommends home IV antibiotics, PICC placed, case management on board
-Medically stable for discharge home on IV ertapenem for 8 more days, follow-up with PCP in the office in 1 week
COPD, no acute exacerbation
-Continue fluticasone, prn nebs
Hyperlipidemia
-Continue Zetia and Pitavastatin
Depression
-Continue fluoxetine
DVT proph: Lovenox
Code Status: Full Code
Physical Exam
General: No acute distress
HEENT: Normocephalic, Atraumatic, EOMI, MMM
Respiratory: Clear to Auscultation bilaterally
Cardiac: Normal S1/S2, Regular Rate and Rhythm
GI: Soft, Nontender, Nondistended, Normal Bowel Sounds
Extremities: No Clubbing, Cyanosis, or Edema
Neuro: Nonfocal/Grossly Intact
Psych: Calm, Cooperative
Anticipated Discharge: Today
Subjective/Interval History
-
Date of Service: February 04, 2025
Patient denies abdominal pain, denies dysuria. No chest pain, no shortness of breath. No fever, no vomiting.
Objective Data
-
Vital Signs:
Vital Signs
Temp Pulse Resp BP Pulse Ox
97.0 F 73 16 124/82 98
02/04/25 07:20 02/04/25 07:51 02/04/25 07:51 02/04/25 07:20 02/04/25 07:51
I&O
02/03/25 02/04/2502/05/25
06:59 06:59 06:59
Intake Total 890 / 890 1440 / 1440
Balance 890 / 890 1440 / 1440
[2025-02-04] MEDS: INVANZ 60 MG IV (10:53)
--- NOTE | 2025-02-04 11:19 | CM ---
Confirmed infusion (medication) delivery for today with [facility], Bettina will go to the home tomorrow for teaching. Pt has transport home.
IMM signed and placed on chart.
Bettina
--- NOTE | 2025-02-04 11:47 | W.DCSUMMARY ---
Discharge Summary
Discharge Data
Date of Admission: 01/29/25
Date of Discharge: 02/04/25
-
Pending Results: No
Hospital Course
Discharge diagnosis:
Multidrug-resistant urinary tract infection
Chronic obstructive pulmonary disease
Recent rib fractures
Hyperlipidemia
Depression
Consults: ID
Hospital course:
84-year-old female with a past medical history of COPD, lung cancer, and hyperlipidemia, was admitted for ESBL positive E. coli urinary tract infection. She had an outpatient urine culture which showed ESBL positive E. coli. Patient was treated
with IV Merrem. She was seen in conjunction with ID, who recommends discharge home on IV ertapenem to complete a 14-day course. She had a PICC placed, and case management arranged for her to receive her IV ertapenem once daily through [facility].
She needs to follow-up with her PCP in 1 week.
Disposition: Home with home care
Discharge planning: Required 37 minutes
Discharge Plan
-
Patient Disposition: Home with Home Care
Discharge Diagnosis/Procedures: ESBL positive E. coli urinary tract infection
Condition: Good
Diet: Low Fat and Low Cholesterol
Activity: As tolerated
Driving Restrictions: As prior to admission
Activity Restrictions/Additional Instructions:
Continue ertapenem 1 g IV daily for 8 more days.
Follow-up with your primary care provider in 1 week.
Referrals:
Danny Granados MD [Family Provider, Internal Medicine] - in one week
Prescriptions:
New
Ertapenem [Invanz] 1000 MG
0.9% Sodium Chloride [Nss] 50 ML
120 mls/hr IV Q24H
Ordered By: Jarad Campa MD
Last Taken: 02/04/25 10:53 60 mls
Continued
latanoprost 0.005 % Drops
1 drp OPHTHALMIC (EYE) DAILY
Rx Instructions:
Both Eyes
fluoxetine 20 mg Tablet
20 mg PO DAILY
ezetimibe 10 mg Tablet
10 mg PO DAILY
pitavastatin calcium 4 mg Tablet
4 mg PO DAILY
fluticasone furoate [Arnuity Ellipta] 100 mcg/actuation Blister With Device
1 inh INHALATION DAILY
gabapentin 300 mg capsule
300 mg PO HS
estradiol 0.01 % (0.1 mg/gram) cream
1 g VAGINAL .SEE BELOW
Rx Instructions:
INSERT 1 GRAM VAGINALLY DAILY FOR 2 WEEKS THEN USE VAGINALLY 2 TIMES A WEEK THEREAFTER
ipratropium bromide 42 mcg (0.06 %) spray,non-aerosol
2 spray INTRANASAL BID
fluoxetine 40 mg capsule
40 mg PO DAILY
Discharge Orders:
Discharge Patient (As Directed); Ordered 02/04/25
Ordered By: Jarad Campa
Discharge Date and Time
Discharge Date/Time: 02/04/25 14:06
Print Language: CHINESE
[2025-02-04 13:00] VITALS: BP 118/78
== END 2025-02-04 14:06 | disposition home health service (06) | DRG 690 ==
LOC: 3 WEST ACU 17:46
PROVIDERS: Physician Assistant Medical; ADMITTING PHYSICIAN Internal Medicine; ATTENDING PHYSICIAN Family Medicine; CONSULT PHYSICIAN Internal Medicine Infectious Disease; EMERGENCY PHYSICIAN Emergency Medicine; FAMILY PHYSICIAN Internal Medicine
DX: N39.0 Urinary tract infection, site not specified (principal); Z16.12 Extended spectrum beta lactamase (ESBL) resistance; Z16.24 Resistance to multiple antibiotics; J44.9 Chronic obstructive pulmonary disease, unspecified; B96.20 Unspecified Escherichia coli [E. coli] as the cause of diseases classified elsewhere; E78.5 Hyperlipidemia, unspecified; F32.A Depression, unspecified; D72.829 Elevated white blood cell count, unspecified; F41.9 Anxiety disorder, unspecified; H40.9 Unspecified glaucoma; Z79.899 Other long term (current) drug therapy; Z85.118 Personal history of other malignant neoplasm of bronchus and lung; Z87.440 Personal history of urinary (tract) infections; Z87.891 Personal history of nicotine dependence
CPT/HCPCS: 80048; 81003; 81015; 82962; 85025; 85027; 87040; 87086; 94640; 96374; 96375; 97116; 97163; 97530; 99285; J1335; J2185

== ENCOUNTER → 2025-02-26 08:27 | Outpatient (REF) | payer MEDICARE, BC, SELFPAY | LOC: HWRAD 08:27 | PROVIDERS: ATTENDING PHYSICIAN Nurse Practitioner; FAMILY PHYSICIAN Internal Medicine | DX: N39.0 Urinary tract infection, site not specified (principal) | CPT/HCPCS: 76770; 76856 ==